=== PATIENT | male | born 1995 | race Caucasian/White ===

== ENCOUNTER 2018-10-22 18:44 | Emergency (ER) | payer OTHER ==
[2018-10-22 18:49] VITALS: BP 137/79
[2018-10-22] MEDS ORDERED: TDAP ADULT 0.5 ML INJ (BOOSTRIX) IM ONE (18:59)
[2018-10-22] MEDS ORDERED: CEPHALEXIN 500 MG CAP PO ONE (19:05)
--- NOTE | 2018-10-22 19:05 | EDPHY ---
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 No paresthesia. No sensory motor deficit. PRIMARY CARE PROVIDER:Worker's compensation REVIEW OF SYSTEMS: 10 systems reviewed and are negative with exception of illness mentioned in the history of present illness PHYSICAL EXAM (Prior to examination, patient consented to physical exam, hands were washed and my usual and customary physical exam procedures followed) 1) GENERAL: Well-developed, well-nourished, alert and oriented. Appears to be in no acute distress. 2) HEAD: Normocephalic 3) HEENT: sclera anicteric 4) LUNGS: Breathing comfortably. 5) SKIN: Left hand: Dorsal aspect overlying the 5th MCP 3 cm linear laceration. No signs of infection. Extensor function intact no deficits. Normal cascading of digits. Full sensation two-point discrimination intact distally. Smoking Status: Current every day smoker Constitutional: Initial Vital Signs Temperature (C) 36.8 C 10/22/18 18:46 Heart Rate 69 10/22/18 18:46 Respiratory Rate 18 10/22/18 18:46 Blood Pressure 137/79 H 10/22/18 18:46 O2 Sat (%) 95 10/22/18 18:46 O2 Delivery Mode Room Air Allergies/Adverse Reactions: No Known Allergies Allergy (Unverified 10/22/18 18:46) Home Medications: Medication Instructions Recorded Cephalexin [Keflex] 500 mg PO TID 5 Days cap 10/22/18 MDM/Departure - MDM Procedures: Procedure: Laceration repair. I explained the indications, risks and benefits for both laceration repair and anesthetic administration. Verbal consent was obtained from the patient. The laceration on the left hand was anesthetized using 0.5% bupivicaine with epinephrine. After anesthetic administered the patient was observed for a period of time and had no apparent adverse effects. The wound was cleaned, prepped, draped in normal sterile fashion and explored to its base. No foreign body seen, no foreign bodies palpated. There were no deep structures involved. No tendon injury was identified. The wound was repaired with 5 simple interrupted 5 O Prolene sutures . The wound repair was simple. The procedure was performed by myself. Patient has been informed that scarring will occur, although efforts have been made to minimize this. Medications Given: Discontinued Medications Cephalexin HCl (Keflex) 500 mg PO EDNOW ONE PRN Reason: Protocol Stop: 10/22/18 19:06 Last Admin: 10/22/18 19:18 Dose: 500 mg Diphtheria/Tetanus/Acell Pertussis (Boostrix) 0.5 ml IM .ONCE ONE Stop: 10/22/18 19:00 Last Admin: 10/22/18 19:03 Dose: 0.5 ml ED Course/Re-evaluation: No evidence of infection. No evidence of extensor tendon damage. He does note that this wound occurred from a relatively dirty piece of metal. Started on prophylactic antibiotics after wound has been closed. No visible foreign body. Given my usual and customary wound precautions instructions, return to ER in 10 days for suture removal. Care of patient under supervision of secondary supervising physician Dr Mcghee. - Depart Disposition: Home, Routine, Self-Care Clinical Impression: Laceration of left hand Qualifiers: Encounter type: initial encounter Foreign body presence: without foreign body Qualified Code(s): S61.412A - Laceration without foreign body of left hand, initial encounter Condition: Good Instructions: Care For Your Stitches (ED), Laceration (ED) Additional Instructions: Return to the ER if you develop redness, swelling, discharge, warmth to the wound, red streaks going up your arm, or any other symptoms that concern you. Prescriptions: Cephalexin [Keflex] 500 mg PO TID 5 Days cap Referrals: Return, to the ER in 10 days for suture removal [Other] - As per Instructions
== END 2018-10-22 19:35 | disposition home or self-care (01) ==
PROC: 0HQGXZZ Repair Left Hand Skin, External Approach (ICD-10-PCS; principal; 2018-10-22)
DX: S61.412A Laceration without foreign body of left hand, initial encounter (principal); W26.8XXA Contact with other sharp object(s), not elsewhere classified, initial encounter; Z23 Encounter for immunization; Y99.0 Civilian activity done for income or pay; Y92.9 Unspecified place or not applicable; Y93.89 Activity, other specified
CPT/HCPCS: L3925

== ENCOUNTER 2018-12-23 17:00 | Emergency (ER) | payer OTHER ==
[2018-12-23] MEDS ORDERED: NS 1,000 ML IV ONE (17:11)
--- NOTE | 2018-12-23 17:13 | EDPHY ---
HPI/HX/ROS/PE/MDM Narrative: CHIEF COMPLAINT: Upper abdomen pain HISTORY OF PRESENT ILLNESS: The patient is a 23 y/o male complaining of sudden onset upper quadrant pain. 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 The pain is described as pressure and cramping. He reports a minor, slow speed fall this morning but denies any other recent trauma. He ate a peanut butter and jelly sandwich and an apple about an hour before pain began. Shortly after the pain began, he was dizzy with some tingling in his fingers. It was noted at that time he was hyperventilating. He denies nausea, vomiting, diarrhea, urinary complaints, hematuria, or any other associated symptoms. He reports history of indigestion but that this is different in location and quality. He denies any abdominal surgeries. He denies recent alcohol intake or marijuana use. No fever, chills, chest pain, shortness of breath, palpitations, vomiting, diarrhea, urinary complaints, headache, lightheadedness. 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 HEENT: Atraumatic. Eyes: No icterus, no injection. Mouth: moist mucous membranes. No erythema or lesions. Neck: supple with no adenopathy. LUNGS: Sporadic wheezes. No rhonchi or rales. CARDIAC: Regular rate and rhythm, no rubs, murmurs or gallops. ABDOMEN: Tenderness in right upper quadrant, left upper quadrant, and epigastric regions. Soft, nondistended, bowel sounds normal. No guarding or rebound. BACK: No CVA tenderness. EXTREMITIES: No trauma. No edema. Range of motion is normal throughout. NEURO: Alert and oriented, grossly nonfocal. SKIN: Warm and dry, no rash. PSYCHIATRIC: Normal mentation, no agitation. ED Course: Study: CT of the abdomen Indication: Abdominal pain, trauma Results: CT scan of the abdomen was obtained. The results of the study are: dilated loops of bowel, consistent with enteritis. The study was read by the radiologist, Dr. Christopher. I viewed the images myself on the PACS system. The patient presents with sudden onset upper abdominal pain. He denies recent trauma aside from a minor fall this morning. On exam, he has tenderness in the RUQ, LUQ, and epigastric regions. Plan for CBC, basic metabolic panel, liver enzymes, lipase, and urinalysis. 17:45 - Labs show elevated white blood cell count. Urinalysis has some ketones present. Normal lipase and LFTs. Plan for CT. 16:25 - CT shows dilated loops of bowel consistent with enteritis. No solid organ injury. Discussed the CT results with the patient. Will provide Zofran as an outpatient as well as Bentyl for crampy abdominal discomfort. Discussed precautions and reasons to return to the emergency department. I feel he is safe to return home. The patient agrees to this course of action. MDM: Differential diagnosis of the patient's upper abdominal pain was considered including but not limited to cholecystitis, gastritis, peptic ulcers disease, and pancreatitis. - Data Points Laboratory Results: Laboratory Results 12/23/18 17:10 12/23/18 17:10 Medications Given: Discontinued Medications Dicyclomine HCl (Bentyl) 20 mg PO EDNOW ONE Stop: 12/23/18 18:28 Last Admin: 12/23/18 18:39 Dose: 20 mg Sodium Chloride (Ns) 1,000 mls @ 0 mls/hr IV EDNOW ONE; Wide Open PRN Reason: Protocol Stop: 12/23/18 17:12 Last Admin: 12/23/18 17:16 Dose: 1,000 mls Ketorolac Tromethamine (Toradol) 15 mg IVP EDNOW ONE Stop: 12/23/18 18:26 Last Admin: 12/23/18 18:39 Dose: 15 mg Ondansetron HCl (Zofran Odt 4 Mg Prepack#2) 1 btl TAKEHOME EDNOW ONE Stop: 12/23/18 18:29 Last Admin: 12/23/18 18:39 Dose: 1 btl General Initial Vital Signs: Initial Vital Signs Temperature (C) 36.4 C 12/23/18 17:00 Heart Rate 70 12/23/18 17:00 Respiratory Rate 18 12/23/18 17:00 Blood Pressure 149/102 H 12/23/18 17:00 O2 Sat (%) 99 12/23/18 17:00 O2 Delivery Mode Room Air Allergies/Adverse Reactions: No Known Allergies Allergy (Unverified 12/23/18 17:11) Home Medications: Medication Instructions Recorded Dicyclomine [Bentyl 20 MG (*)] 20 mg PO QID #20 tab 12/23/18 Ondansetron Odt [Zofran Odt 4 mg 4 mg PO Q6 PRN #8 tab 12/23/18 (RX)] Departure - Departure Disposition: Home, Routine, Self-Care Clinical Impression: Enteritis Condition: Good Instructions: Ondansetron (By mouth), Enteritis (ED) Additional Instructions: 1. Please drink lots of clear foods. Avoid alcohol and spicy foods until you feel better. For your abdominal pain, I suggested you start with a bland diet and advance as tolerated. This means start with clear liquids such as water, Gatorade, juice, flat non- caffeinated soda. If you tolerate clear liquids, then you may add bland foods such as bananas, rice, or toast. If you do not have any worsening of your symptoms, you may begin to resume a regular diet. 2. Use Zofran as directed as needed for nausea. 3. Please use Bentyl as directed for crampy abdominal pain. You may also take a small amount of ibuprofen to help with the pain. 3. Follow up with your primary care provider if symptoms are not improving in 3- 5 days. 4. Return to the emergency department for vomiting blood, blood in your stool, or any other worsening of condition. Referrals: NONE *PRIMARY CARE P,. [Primary Care Provider] - As per Instructions Prescriptions: Dicyclomine [Bentyl 20 MG (*)] 20 mg PO QID #20 tab Ondansetron Odt [Zofran Odt 4 mg (RX)] 4 mg PO Q6 PRN #8 tab PRN Reason: Nausea Report Scribed for: Elda Barger Report Scribed by: Ninfa Green Date of Report: 12/23/18 Time of Report: 17:30 Physician Review and Approval Statement: Portions of this note were transcribed by a quality engineer medical device. I personally performed a history, physical exam, medical decision making, and confirmed accuracy of information the transcribed note.
[2018-12-23 17:23] LABS: PLATELET COUNT 282 10^3/uL (150-400)
[2018-12-23] MEDS ORDERED: IOPAMIDOL (ISOVUE-300) 100 ML BTL ONE (17:44)
[2018-12-23] MEDS ORDERED: KETOROLAC 15 MG/1 ML SDV IVP ONE (18:25)
[2018-12-23] MEDS ORDERED: DICYCLOMINE 10 MG CAP PO ONE (18:27)
[2018-12-23] MEDS ORDERED: ONDANSETRON 4MG PREPACK#2 BTL TAKEHOME ONE (18:28)
[2018-12-23 18:55] VITALS: BP 153/96
== END 2018-12-23 18:55 | disposition home or self-care (01) ==
LOC: EDUNIT#
DX: K52.9 Noninfective gastroenteritis and colitis, unspecified (principal); E86.9 Volume depletion, unspecified
CPT/HCPCS: 96374; J1885; Q9967